=== PATIENT | male | born 1985 | race Caucasian/White ===

== ENCOUNTER → 2023-08-30 | Outpatient (CLI) | payer OTHER ==
--- NOTE | 2023-08-30 12:12 | XR ---
EXAMINATION TYPE: XR lumbar spine 2 or 3V, XR Hip Complete 2 views RT DATE OF EXAM: 08/30/2023 Comparison: None Clinical History: 38-year-old male S39.012A STRAIN OF MUSCLE, FASCIA AND TEN S73.101A Findings: Lumbar spine: Transitional lumbosacral segment is noted as a lumbarized S1. Mild degenerative disc disease upper [place] mbar spine. Slight accentuated kyphosis at the thoracal lumbar junction. Vertebral body heights are p reserved and alignment is maintained. Right hip: Right SI joint appears intact as does the pubic symphysis. Right hip joint space is maintained. No ac [place] fracture, subluxation, dislocation. Impression: 1. Lumbar spine: Mild degenerative disc disease lower thoracic and upper lumbar spine. No vertebral c ompression collapse or malalignment. 2. Right hip: No acute osseous abnormality seen.
== END | disposition home or self-care (01) ==
LOC: RADXRMAIN 11:47
PROVIDERS: ATTEND Emergency Medicine
DX: M51.35 Other intervertebral disc degeneration, thoracolumbar region (principal); S39.012A Strain of muscle, fascia and tendon of lower back, initial encounter; S73.101A Unspecified sprain of right hip, initial encounter
CPT/HCPCS: 72100; 73502